=== PATIENT | female | born 1990 | race American Indian/Alaskan Native ===

== ENCOUNTER 2017-07-17 01:15 | Emergency (ER) | payer MEDICAID, OTHER ==
[2017-07-17] MEDS ORDERED: traMADol 50 MG Tab PO ONE (01:46)
--- NOTE | 2017-07-17 01:48 | EDM.PDOC ---
ED HPI GENERAL MEDICAL PROBLEM - General Chief Complaint: General Stated Complaint: TOOTH PAIN Time Seen by Provider: 07/17/17 01:16 Source of Information: Reports: Patient, Family History Limitations: Reports: No Limitations - History of Present Illness INITIAL COMMENTS - FREE TEXT/NARRATIVE: 26 y.o.NA came to the ed due to toothache. 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 pt denies any other acute medical issues. Onset: Today Onset Time: 00:00 Duration: Hour(s):, Constant Location: Reports: Head Quality: Reports: Ache, Burning Improves with: Reports: Rest Worsens with: Reports: Cold Therapy, Eating, Heat Therapy Associated Symptoms: Reports: No Other Symptoms Treatments DIRECTOR STATISTICAL PROGRAMMING: Reports: Acetaminophen R lower jaw Pain Score (Numeric/FACES): 9 - Related Data Allergies Allergy/AdvReac Type Severity Reaction Status Date / Time ibuprofen Allergy Abdominal Verified 03/11/16 15:45 Pain Home Meds: Home Meds Acetaminophen [Tylenol] 650 mg PO Q6H PRN 11/08/14 [History] Multivitamin [Multivitamins] 1 tab PO DAILY 10/07/16 [History] Melatonin 5 mg PO BEDTIME PRN 07/17/17 [History] Past Medical History - Past Health History Medical/Surgical History: Denies Medical/Surgical History Cardiovascular History: Reports: Hypertension Other Cardiovascular History: hx preeclampsia, Genitourinary History: Reports: None 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: , Other (See Below) Other OB/BYN History: Psychiatric History: Reports: ADHD Endocrine/Metabolic History: Reports: Obesity/BMI 30+ - Infectious Disease History Infectious Disease History: Reports: None - Past Surgical History HEENT Surgical History: Reports: Oral Surgery GI Surgical History: Reports: Appendectomy, Hernia Repair/Other Female Surgical History: Reports: Cystectomy, Salpingo-Oophorectomy Other Female Surgeries/Procedures: R ovary & fallopian tube removed Social & Family History - Family History Family Medical History: Noncontributory Oncologic: Reports: Breast Other Oncologic Family History: mother is a breast cancer survivor - Tobacco Use Smoking Status *Q: Current Some Day Smoker Years of Tobacco use: 2 Packs/Tins Daily: 0.1 Used Tobacco, but Quit: Yes Month Tobacco Last Used: September Second Hand Smoke Exposure: No - Caffeine Use Caffeine Use: Reports: Coffee - Alcohol Use Days Per Week of Alcohol Use: 0 Number of Drinks Per Day: 1 Total Drinks Per Week: 0 - Recreational Drug Use Recreational Drug Use: No Drug Use in Last 12 Months: No ED ROS GENERAL - Review of Systems Review Of Systems: See Below Constitutional: Reports: No Symptoms HEENT: Reports: Dental Pain Respiratory: Reports: No Symptoms Cardiovascular: Reports: No Symptoms Endocrine: Reports: No Symptoms GI/Abdominal: Reports: No Symptoms : Reports: No Symptoms Musculoskeletal: Reports: No Symptoms Skin: Reports: No Symptoms Neurological: Reports: No Symptoms Psychiatric: Reports: No Symptoms Hematologic/Lymphatic: Reports: No Symptoms Immunologic: Reports: No Symptoms ED EXAM, GENERAL - Physical Exam Exam: See Below Exam Limited By: No Limitations General Appearance: Alert, WD/WN, Mild Distress Eye Exam: Bilateral Eye: Normal Inspection Ears: Normal External Exam Ear Exam: Bilateral Ear: Auricle Normal Nose: Normal Inspection Throat/Mouth: Normal Inspection Head: Atraumatic Neck: Normal Inspection Respiratory/Chest: No Respiratory Distress Cardiovascular: Normal Peripheral Pulses Peripheral Pulses: 1+: Femoral (L), Femoral (R) GI/Abdominal: Normal Bowel Sounds (Female) Exam: Deferred Rectal (Female) Exam: Deferred Back Exam: Normal Inspection Extremities: Normal Inspection Neurological: Alert, Oriented, CN II-XII Intact Psychiatric: Normal Affect Skin Exam: Warm Lymphatic: No Adenopathy Course - Vital Signs Text/Narrative:: 26 y.o.NA came to the ed due to toothache. 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 pt denies any other acute medical issues PE: decayed tooth #30 Impression: Toothache Tx: Ultarm Plan: D/C with instructions Last Recorded V/S: Last Vital Signs Temp 36.7 C 07/17/17 01:16 Pulse 78 07/17/17 01:16 Resp 18 07/17/17 01:16 BP 131/76 07/17/17 01:16 Pulse Ox 99 07/17/17 01:16 Departure - Departure Time of Disposition: 01:46 Disposition: Home, Self-Care 01 Condition: Good Clinical Impression: Toothache - Discharge Information Instructions: Dental Caries, [id number] Referrals: Lopez Aguirre MD [Primary Care Provider] - Forms: ED Department Discharge Additional Instructions: Please take Tramadol for severe pain only, may continue to use Tylenol for moderate pain. Please follow up with your dentist, please come back if your symptoms get worse acutely.
[2017-07-17 02:00] VITALS: BP 139/73
== END 2017-07-17 01:52 | disposition home or self-care (01) ==
LOC: FB.ED 01:15
DX: K08.89 Other specified disorders of teeth and supporting structures (principal); I10 Essential (primary) hypertension; F17.210 Nicotine dependence, cigarettes, uncomplicated; F90.9 Attention-deficit hyperactivity disorder, unspecified type; E66.9 Obesity, unspecified; Z90.49 Acquired absence of other specified parts of digestive tract; Z88.8 Allergy status to other drugs, medicaments and biological substances
CPT/HCPCS: 99282; A9270; 99283

== ENCOUNTER 2017-07-19 10:32 | Emergency (ER) | payer MEDICAID ==
[2017-07-19] MEDS ORDERED: HYDROmorphone 2 MG/ML SDV IM ONE (10:55)
[2017-07-19] MEDS ORDERED: Ondansetron 8 MG Tab.DIS PO ONE (10:55)
--- NOTE | 2017-07-19 10:57 | EDM.PDOC ---
ED HPI GENERAL MEDICAL PROBLEM - General Stated Complaint: RT SIDE TOOTH PAIN Time Seen by Provider: 07/19/17 10:32 Source of Information: Reports: Patient, Family History Limitations: Reports: Other (nausea, vomiting) - History of Present Illness INITIAL COMMENTS - FREE TEXT/NARRATIVE: 26 NA came to the ed due to pain at her r lower jaw for 3 days, getting worse, with pain radiating to her right ear. Pt has severe N/V from pain as well, no trauma, no other acute medical issues. Onset: Unknown/Unsure Onset Date: 07/18/17 Onset Time: 09:00 Duration: Hour(s):, Intermittent Location: Reports: Face Quality: Reports: Dull, Pressure, Stabbing, Throbbing Severity: Severe Improves with: Reports: Cold Therapy, Medication Worsens with: Reports: Eating, Movement Context: Reports: Other (toothpain) Associated Symptoms: Reports: Nausea/Vomiting - Related Data Allergies Allergy/AdvReac Type Severity Reaction Status Date / Time ibuprofen Allergy Abdominal Verified 03/11/16 15:45 Pain Home Meds: Home Meds Acetaminophen [Tylenol] 650 mg PO Q6H PRN 11/08/14 [History] Multivitamin [Multivitamins] 1 tab PO DAILY 10/07/16 [History] Melatonin 5 mg PO BEDTIME PRN 07/17/17 [History] Acetaminophen/HYDROcodone [[place] 325-5 MG] 1 tab PO Q4H PRN #6 tab 07/19/17 [Rx] Ondansetron [Zofran ODT] 4 mg PO Q6H PRN #6 tab.dis 07/19/17 [Rx] Past Medical History - Past Health History Medical/Surgical History: Denies Medical/Surgical History Cardiovascular History: Reports: Hypertension Other Cardiovascular History: hx preeclampsia, Genitourinary History: Reports: None 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: , Other (See Below) Other OB/BYN History: Psychiatric History: Reports: ADHD Endocrine/Metabolic History: Reports: Obesity/BMI 30+ - Infectious Disease History Infectious Disease History: Reports: None - Past Surgical History HEENT Surgical History: Reports: Oral Surgery GI Surgical History: Reports: Appendectomy, Hernia Repair/Other Female Surgical History: Reports: Cystectomy, Salpingo-Oophorectomy Other Female Surgeries/Procedures: R ovary & fallopian tube removed Social & Family History - Family History Family Medical History: Noncontributory Oncologic: Reports: Breast Other Oncologic Family History: mother is a breast cancer survivor - Tobacco Use Smoking Status *Q: Former Smoker Years of Tobacco use: 7 Packs/Tins Daily: 0 Used Tobacco, but Quit: Yes Month Tobacco Last Used: September Second Hand Smoke Exposure: No - Caffeine Use Caffeine Use: Reports: Coffee - Alcohol Use Days Per Week of Alcohol Use: 0 Number of Drinks Per Day: 1 Total Drinks Per Week: 0 - Recreational Drug Use Recreational Drug Use: No Drug Use in Last 12 Months: No ED ROS ENT - Review of Systems Review Of Systems: See Below Constitutional: Reports: No Symptoms HEENT: Reports: Dental Pain Respiratory: Reports: No Symptoms Cardiovascular: Reports: No Symptoms Endocrine: Reports: No Symptoms GI/Abdominal: Reports: Nausea, Vomiting : Reports: No Symptoms Musculoskeletal: Reports: No Symptoms Skin: Reports: No Symptoms Neurological: Reports: No Symptoms Psychiatric: Reports: No Symptoms Hematologic/Lymphatic: Reports: No Symptoms Immunologic: Reports: No Symptoms ED EXAM, ENT - Physical Exam Exam: See Below Exam Limited By: No Limitations General Appearance: Alert, WD/WN, Mild Distress, Moderate Distress Eye Exam: Bilateral Eye: Normal Inspection Ears: Normal External Exam Nose: Normal Inspection Mouth/Throat: Dental Abcess (tooth#31), Dental Pain, Dental Tenderness Head: Atraumatic, Normocephalic Neck: Normal Inspection, Supple, Non-Tender, Full Range of Motion Respiratory/Chest: No Respiratory Distress, Lungs Clear, Normal Breath Sounds Cardiovascular: Normal Peripheral Pulses GI/Abdominal: Normal Bowel Sounds, Soft, Non-Tender (Female) Exam: Deferred Rectal (Female) Exam: Deferred Back: Normal Inspection, Full Range of Motion Extremities: Normal Inspection, Normal Range of Motion Neurological: Alert, Oriented, CN II-XII Intact, Normal Cognition, Normal Gait Psychiatric: Normal Affect, Normal Mood Skin: Warm, Dry, Intact Lymphatic: No Adenopathy Course - Vital Signs Text/Narrative:: 26 NA came to the ed due to pain at her r lower jaw for 3 days, getting worse, with pain radiating to her right ear. Pt has severe N/V from pain as well, no trauma, no other acute medical issues. PE: swelling of a right lower jaw, N/V Imaging: Abscessed tooth #31 Impressin: Abscessed tooth #31 Tx: Dilaudid, zofran Reexam: improved Plan: D/C with instruction - Orders/Labs/Meds Orders: Active Orders 24 hr Category Date Time Status Max Facial Sinus wo Cont [CT] Stat Exams 07/19/17 10:55 Taken Meds: Medications Discontinued Medications Generic Name Dose Route Start Last Admin Trade Name Freq PRN Reason Stop Dose Admin Hydromorphone HCl 1 mg 07/19/17 10:55 07/19/17 11:21 Dilaudid IM 07/19/17 10:56 1 mg ONETIME ONE Administration Ondansetron HCl 8 mg 07/19/17 10:55 07/19/17 11:16 Zofran Odt PO 07/19/17 10:56 8 mg ONETIME ONE Administration Departure - Departure Time of Disposition: 11:47 Disposition: Home, Self-Care 01 Condition: Good Clinical Impression: Abscessed tooth, Nausea - Discharge Information Prescriptions: Acetaminophen/HYDROcodone [[place] 325-5 MG] 1 tab PO Q4H PRN #6 tab PRN Reason: severe pain only Ondansetron [Zofran ODT] 4 mg PO Q6H PRN #6 tab.dis PRN Reason: Nausea Instructions: Dental Abscess Referrals: Lopez Aguirre MD [Primary Care Provider] - Forms: ED Department Discharge Additional Instructions: Please the dentist today as scheduled, please take the meds as recommended, please come back if your symptoms get worse acutely. - My Orders Last 24 Hours: My Active Orders 07/19/17 10:55 Max Facial Sinus wo Cont [CT] Stat - Assessment/Plan Last 24 Hours: My Active Orders 07/19/17 10:55 Max Facial Sinus wo Cont [CT] Stat
--- NOTE | 2017-07-19 12:18 | CT ---
INDICATION: Possible tooth abscess. Right side of face throbbing. No history of trauma. CT FACIAL BONES - PARANASAL SINUSES: Coronal 1.25-mm images through the paranasal sinuses were obtained 07/19/2017 and were compared with 03/02/2012. Total Exam DLP = 368.19 mGy-cm. The maxillary infundibula were patent. No thickening of linings, air-fluid levels, opacification, or bony erosion could be identified to suggest sinusitis. Dental work is present, which produces hard beam artifact limiting detail and making it fairly difficult to exclude a relatively mild inflammatory process. No large abscess could be identified, however. IMPRESSION: 1. Normal paranasal sinuses. 2. Limitation due to dental work is noted. There is, however, suspicion of a possible abscess of the first right mandibular molar. This should be correlated clinically. Report was called to Dr. Deras at 1145 hours, 07/19/2017. [facility]
[2017-07-19 13:17] VITALS: BP 136/76
== END 2017-07-19 11:59 | disposition home or self-care (01) ==
LOC: FB.ED 10:32
DX: K04.7 Periapical abscess without sinus (principal); E66.9 Obesity, unspecified; I10 Essential (primary) hypertension; Z88.6 Allergy status to analgesic agent; Z87.891 Personal history of nicotine dependence
CPT/HCPCS: 70486; 96372; 99283; A9270; J1170

== ENCOUNTER 2018-03-19 12:19 | Emergency (ER) | payer MEDICAID ==
[2018-03-19] MEDS ORDERED: Acetaminophen Soln 650 MG/20.3 ML UD Cup PO ONE (13:02)
[2018-03-19] MEDS ORDERED: Acetaminophen 325 MG Tab PO ONE (13:06)
--- NOTE | 2018-03-19 13:06 | EDM.PDOC ---
ED HPI GENERAL MEDICAL PROBLEM - General Stated Complaint: FEVERS, ACHING ALL OVER Time Seen by Provider: 03/19/18 12:19 Source of Information: Reports: Patient History Limitations: Reports: No Limitations - History of Present Illness INITIAL COMMENTS - FREE TEXT/NARRATIVE: 27 y.o.NA came to the ed because of hen bodyach with "needles sticking her" all over her body. Pt denied drug and ETOH use. Denied . No SOB, No C/P no N/V/D no F/C or any other acute medical issues. BP 151/111 Pulse 102 RR 18 Temp 37.1 Puls ox 100% on RA Onset Date: 03/19/18 Onset Time: 08:00 Duration: Hour(s): Location: Reports: Generalized Quality: Reports: Ache, Burning, Dull, Stabbing, Throbbing Severity: Moderate Improves with: Reports: Rest Worsens with: Reports: Movement Context: Reports: Other (amphetamin and marijuana use.) Associated Symptoms: Reports: No Other Symptoms - Related Data Allergies Allergy/AdvReac Type Severity Reaction Status Date / Time ibuprofen Allergy Abdominal Verified 03/19/18 13:48 Pain Home Meds: Home Meds Ciprofloxacin HCl [Cipro] 500 mg PO BID #20 tablet 03/19/18 [Rx] Past Medical History - Past Health History Medical/Surgical History: Denies Medical/Surgical History Cardiovascular History: Reports: Hypertension Other Cardiovascular History: hx preeclampsia, Genitourinary History: Reports: None 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: , Other (See Below) Other OB/BYN History: Psychiatric History: Reports: ADHD Endocrine/Metabolic History: Reports: Obesity/BMI 30+ - Infectious Disease History Infectious Disease History: Reports: None - Past Surgical History HEENT Surgical History: Reports: Oral Surgery GI Surgical History: Reports: Appendectomy, Hernia Repair/Other Female Surgical History: Reports: Cystectomy, Salpingo-Oophorectomy Other Female Surgeries/Procedures: R ovary & fallopian tube removed Social & Family History - Family History Family Medical History: Noncontributory Oncologic: Reports: Breast Other Oncologic Family History: mother is a breast cancer survivor - Caffeine Use Caffeine Use: Reports: Coffee ED ROS GENERAL - Review of Systems Review Of Systems: Unable To Obtain (anxiety, DOD) ED EXAM, GENERAL - Physical Exam Exam: See Below Exam Limited By: Intoxication (DOD) General Appearance: Alert, WD/WN, No Apparent Distress, Anxious Eye Exam: Bilateral Eye: Normal Inspection Ears: Normal External Exam, Normal Canal Ear Exam: Bilateral Ear: Auricle Normal Nose: Normal Inspection, Normal Mucosa, No Blood Throat/Mouth: Normal Lips, Normal Gums, Normal Oropharynx, Normal Voice, No Airway Compromise, Other (dry mucosal membranes) Head: Atraumatic, Normocephalic Neck: Normal Inspection, Supple, Non-Tender, Full Range of Motion Respiratory/Chest: No Respiratory Distress, Lungs Clear, Normal Breath Sounds, No Accessory Muscle Use, Chest Non-Tender Cardiovascular: Regular Rate, Rhythm, Tachycardia Peripheral Pulses: 1+: Brachial (R) GI/Abdominal: Normal Bowel Sounds, Soft, Non-Tender, No Organomegaly, No Distention, No Abnormal Bruit, No Mass, Pelvis Stable (Female) Exam: Deferred Rectal (Female) Exam: Deferred Back Exam: Normal Inspection, Full Range of Motion Extremities: Normal Inspection, Normal Range of Motion, Non-Tender, No Pedal Edema, Normal Capillary Refill Neurological: Alert, Oriented, CN II-XII Intact, Normal Cognition, Normal Gait, No Motor/Sensory Deficits Psychiatric: Anxious Skin Exam: Warm, Dry, Intact, Normal Color, No Rash Lymphatic: No Adenopathy Course - Vital Signs Text/Narrative:: 27 y.o.NA came to the ed because of hen bodyach with "needles sticking her" all over her body. Pt denied drug and ETOH use. Denied . No SOB, No C/P no N/V/D no F/C or any other acute medical issues. BP 151/111 Pulse 102 RR 18 Temp 37.1 Puls ox 100% on RA Labs: WBC 15,5 reminer nl, BMP nl UA pos for TCH and Amphetamines. UA pos for UTI Impression: UDS pos for marijuana and Amphetamines, UTI Tx: Tylenol, Cipro Reexam: Pt improved, was tking water well, ambulating well. Plan: D/C with instructions Last Recorded V/S: Last Vital Signs Temp 37.1 C 03/19/18 12:30 Pulse 109 H 03/19/18 14:40 Resp 18 03/19/18 14:40 BP 140/95 H 03/19/18 14:40 Pulse Ox 98 03/19/18 14:40 - Orders/Labs/Meds Orders: Active Orders 24 hr Category Date Time Status DRUG SCREEN, URINE ALERE [URCHEM] Stat Lab 03/19/18 12:50 Ordered UA W/MICROSCOPIC [URIN] Stat Lab 03/19/18 12:50 Ordered EKG 12 Lead [EK] Routine Ther 03/19/18 13:22 Ordered Labs: Laboratory Tests 03/19/18 03/19/18 03/19/18 Range/Units 12:50 12:50 12:50 WBC (4.5-12.0) X10-3/uL RBC (3.23-5.20) x10(6)uL Hgb (11.5-15.5) g/dL Hct (30.0-51.3) % MCV (80-96) fL MCH (27.7-33.6) pg MCHC (32.2-35.4) g/dL RDW (11.5-15.5) % Plt Count (125-369) X10(3)uL MPV (7.4-10.4) fL Add Manual Diff Neutrophils % (Manual) (46-82) % Lymphocytes % (Manual) (13-37) % Monocytes % (Manual) (4-12) % Sodium (135-145) mmol/L Potassium (3.5-5.3) mmol/L Chloride (100-110) mmol/L Carbon Dioxide (21-32) mmol/L BUN (7-18) mg/dL Creatinine (0.55-1.02) mg/dL Est Cr Clr Drug Dosing Estimated GFR (MDRD) (>60) BUN/Creatinine Ratio (9-20) Glucose (80-116) mg/dL Calcium (8.6-10.2) mg/dL Creatine Kinase (60-160) IU/L Troponin I (<0.017-0.056) ng/mL Urine Color [place] (YELLOW) Urine Appearance Clear (CLEAR) Urine pH 6.0 (5.0-6.5) Ur Specific [place] 1.015 (1.010-1.025) Urine Protein Trace (NEGATIVE) mg/dL Urine Glucose (UA) Normal (NEGATIVE) mg/dL Urine Ketones Negative (NEGATIVE) mg/dL Urine Occult Blood Negative (NEGATIVE) Urine Nitrite Negative (NEGATIVE) Urine Bilirubin Small H (NEGATIVE) Urine Urobilinogen >=12 H (NEGATIVE) mg/dL Ur Leukocyte Esterase Moderate H (NEGATIVE) Urine RBC 0-5 (0) Urine WBC 10-20 H (0) Ur Squamous Epith Cells Moderate H (NS,R,O) Urine Bacteria Few H (NS) Urine Mucus Many H (NS) Urine HCG, Qual Negative (NEGATIVE) Urine Opiates Screen Negative (NEGATIVE) Ur Oxycodone Screen Negative (NEGATIVE) Ur Propoxyphene Screen Negative (NEGATIVE) Ur Barbituates Screen Negative (NEGATIVE) Ur Tricyclics Screen Negative (NEGATIVE) Ur Phencyclidine Scrn Negative (NEGATIVE) Ur Amphetamine Screen Positive H (NEGATIVE) Urine MDMA Screen Negative (NEGATIVE) U Benzodiazepines Scrn Negative (NEGATIVE) U Cocaine Metab Screen Negative (NEGATIVE) U Marijuana (THC) Screen Positive H (NEGATIVE) 03/19/18 03/19/18 03/19/18 Range/Units 13:30 13:30 13:30 WBC 15.5 H (4.5-12.0) X10-3/uL RBC 4.17 (3.23-5.20) x10(6)uL Hgb 13.2 (11.5-15.5) g/dL Hct 37.8 (30.0-51.3) % MCV 90.7 (80-96) fL MCH 31.8 (27.7-33.6) pg MCHC 35.1 (32.2-35.4) g/dL RDW 12.2 (11.5-15.5) % Plt Count 214 (125-369) X10(3)uL MPV 8.2 (7.4-10.4) fL Add Manual Diff Yes Neutrophils % (Manual) 85 H (46-82) % Lymphocytes % (Manual) 13 (13-37) % Monocytes % (Manual) 2 L (4-12) % Sodium 136 (135-145) mmol/L Potassium 3.5 (3.5-5.3) mmol/L Chloride 100 (100-110) mmol/L Carbon Dioxide 27 (21-32) mmol/L BUN 9 (7-18) mg/dL Creatinine 0.6 (0.55-1.02) mg/dL Est Cr Clr Drug Dosing TNP Estimated GFR (MDRD) > 60 (>60) BUN/Creatinine Ratio 15.0 (9-20) Glucose 94 (80-116) mg/dL Calcium 9.0 (8.6-10.2) mg/dL Creatine Kinase 46 L (60-160) IU/L Troponin I < 0.017 L (<0.017-0.056) ng/mL Urine Color (YELLOW) Urine Appearance (CLEAR) Urine pH (5.0-6.5) Ur Specific [place] (1.010-1.025) Urine Protein (NEGATIVE) mg/dL Urine Glucose (UA) (NEGATIVE) mg/dL Urine Ketones (NEGATIVE) mg/dL Urine Occult Blood (NEGATIVE) Urine Nitrite (NEGATIVE) Urine Bilirubin (NEGATIVE) Urine Urobilinogen (NEGATIVE) mg/dL Ur Leukocyte Esterase (NEGATIVE) Urine RBC (0) Urine WBC (0) Ur Squamous Epith Cells (NS,R,O) Urine Bacteria (NS) Urine Mucus (NS) Urine HCG, Qual (NEGATIVE) Urine Opiates Screen (NEGATIVE) Ur Oxycodone Screen (NEGATIVE) Ur Propoxyphene Screen (NEGATIVE) Ur Barbituates Screen (NEGATIVE) Ur Tricyclics Screen (NEGATIVE) Ur Phencyclidine Scrn (NEGATIVE) Ur Amphetamine Screen (NEGATIVE) Urine MDMA Screen (NEGATIVE) U Benzodiazepines Scrn (NEGATIVE) U Cocaine Metab Screen (NEGATIVE) U Marijuana (THC) Screen (NEGATIVE) Meds: Medications Discontinued Medications Generic Name Dose Route Start Last Admin Trade Name Estefania PRN Reason Stop Dose Admin Acetaminophen 650 mg 03/19/18 13:06 03/19/18 13:08 Tylenol PO 03/19/18 13:07 650 mg ONETIME ONE Administration Ciprofloxacin 500 mg 03/19/18 14:26 03/19/18 14:38 Ciprofloxacin Hcl PO 03/19/18 14:27 500 mg ONETIME STA Administration Departure - Departure Time of Disposition: 14:27 Disposition: Home, Self-Care 01 Condition: Good Clinical Impression: Positive urine drug screen UTI (urinary tract infection) Qualifiers: Urinary tract infection type: acute cystitis Hematuria presence: without hematuria Qualified Code(s): N30.00 - Acute cystitis without hematuria - Discharge Information Prescriptions: Ciprofloxacin HCl [Cipro] 500 mg PO BID #20 tablet Instructions: Urinary Tract Infection, Adult, [id number], Ciprofloxacin tablets Referrals: Lopez Aguirre MD [Primary Care Provider] - Forms: ED Department Discharge Additional Instructions: Please do nottake any drugs, please increase water intake, please the cipro as recommended, please f/u, come back if your symptoms get worse acutely. - My Orders Last 24 Hours: My Active Orders 03/19/18 12:50 DRUG SCREEN, URINE ALERE [URCHEM] Stat UA W/MICROSCOPIC [URIN] Stat 03/19/18 13:22 EKG 12 Lead [EK] Routine - Assessment/Plan Last 24 Hours: My Active Orders 03/19/18 12:50 DRUG SCREEN, URINE ALERE [URCHEM] Stat UA W/MICROSCOPIC [URIN] Stat 03/19/18 13:22 EKG 12 Lead [EK] Routine
[2018-03-19] MEDS ORDERED: Ciprofloxacin 500 MG Tab PO STA (14:26)
[2018-03-19 14:53] VITALS: BP 140/95
== END 2018-03-19 14:47 | disposition home or self-care (01) ==
LOC: FB.ED 12:19
DX: N30.00 Acute cystitis without hematuria (principal); F12.129 Cannabis abuse with intoxication, unspecified; F15.129 Other stimulant abuse with intoxication, unspecified; I10 Essential (primary) hypertension; E66.9 Obesity, unspecified; Z90.49 Acquired absence of other specified parts of digestive tract; Z88.6 Allergy status to analgesic agent
CPT/HCPCS: 36415; 80048; 80305; 81001; 81025; 82550; 84484; 85025; 99283; A9270

== ENCOUNTER 2018-05-06 00:08 | Emergency (ER) | payer MEDICAID ==
[2018-05-06] MEDS ORDERED: Acetaminophen/oxyCODONE 325-5 MG Tab PO ONE (01:07)
[2018-05-06] MEDS ORDERED: Amoxicillin 500 MG Cap PO ONE ×2 (01:16→01:30)
[2018-05-06 02:01] VITALS: BP 161/98
--- NOTE | 2018-05-08 10:59 | ER ---
DATE SEEN: 05/06/2018 TIME SEEN: The patient was seen at 0035 hours. HISTORY OF PRESENT ILLNESS: Five hours ago onset of severe #21 tooth pain. The [place] to this [place] and she has marked pain. She is in tears. PHYSICAL EXAMINATION: VITAL SIGNS: Blood pressure 167/107, heart rate 86, respirations 20, and oxygen saturation 100%. GENERAL: The patient is in tears, lying on her side in a position because she has so much pain at tooth #21. At the buccal border, 70% of crown is absent and there is a brown abnormality of the pulp. No gingival erythema. The rest of teeth are in good hygiene and very well taken care of. The patient has no cervical adenopathy. Neck is supple with no pharyngeal erythema. A bupivacaine injection was placed 0.1% with epinephrine 1:200,000. The patient tolerated this well. She had immediate relief. She was grateful for the inferior alveolar nerve block. The patient sent home with prescription of 10 tablets of Percocet 5/325 and antibiotic. This should be enough until she can get to the dentist. She will be following up with the dentist on 05/08/2018. DIAGNOSIS: Periapical abscess with fractured crown, with 70% of the crown absent at the buccal border with old dental pulp abnormality. /[id number] VALERIE/SAE GARNETT
== END 2018-05-06 01:38 | disposition home or self-care (01) ==
LOC: FB.ED 00:08
DX: K04.7 Periapical abscess without sinus (principal)
CPT/HCPCS: 64400; 99282; A9270

== ENCOUNTER 2019-07-24 11:27 | Emergency (ER) | payer MEDICAID, OTHER ==
[2019-07-24 12:06] VITALS: PULSE 78
[2019-07-24] MEDS ORDERED: traMADol 50 MG Tab PO ONE (12:15)
--- NOTE | 2019-07-24 12:16 | EDM.PDOC ---
ED HPI GENERAL MEDICAL PROBLEM - General Chief Complaint: Lower Extremity Injury/Pain Stated Complaint: HIT LEFT LEG, BUMP,BRUISES Time Seen by Provider: 07/24/19 11:37 Source of Information: Reports: Patient History Limitations: Reports: No Limitations - History of Present Illness INITIAL COMMENTS - FREE TEXT/NARRATIVE: 28 y.o.w.f came to the ed 3 days after she twisted her left ankle. pt applied ice to the left ankle, she is still able 6to walk on her left leg with some discomfort, however. Pt isn not sex active, no other acute med issues. 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 - Related Data Allergies Allergy/AdvReac Type Severity Reaction Status Date / Time ibuprofen Allergy Abdominal Verified 05/06/18 00:30 Pain Home Meds: Home Meds Amoxicillin 875 mg PO BID #21 tab 05/06/18 [Rx] Hydrocodone/Acetaminophen [Hydrocodon-Acetaminophen 5-325] 1 each PO Q4HR PRN # 8 tablet 05/06/18 [Rx] oxyCODONE HCl/Acetaminophen [Percocet 5-325 mg Tablet] 1 each PO Q6HR #8 tablet 05/06/18 [Rx] traMADol [Ultram] 50 mg PO Q6H PRN #7 tab 07/24/19 [Rx] Past Medical History - Past Health History Medical/Surgical History: Denies Medical/Surgical History Cardiovascular History: Reports: Hypertension Other Cardiovascular History: hx preeclampsia, Genitourinary History: Reports: None 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: , Other (See Below) Other LATENT 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 EXAMINER History: Psychiatric History: Reports: ADHD Endocrine/Metabolic History: Reports: Obesity/BMI 30+ - Infectious Disease History Infectious Disease History: Reports: None - Past Surgical History HEENT Surgical History: Reports: Oral Surgery GI Surgical History: Reports: Appendectomy, Hernia Repair/Other Female Surgical History: Reports: Cystectomy, Salpingo-Oophorectomy Other Female Surgeries/Procedures: R ovary & fallopian tube removed Social & Family History - Family History Family Medical History: Noncontributory Oncologic: Reports: Breast Other Oncologic Family History: mother is a breast cancer survivor - Caffeine Use Caffeine Use: Reports: Coffee, Soda Review of Systems - Review of Systems Review Of Systems: See Below Constitutional: Reports: No Symptoms Eyes: Reports: No Symptoms Ears: Reports: No Symptoms Nose: Reports: No Symptoms Mouth/Throat: Reports: No Symptoms Respiratory: Reports: No Symptoms Cardiovascular: Reports: No Symptoms GI/Abdominal: Reports: No Symptoms Genitourinary: Reports: No Symptoms Musculoskeletal: Reports: Joint Pain (left ankle) Skin: Reports: No Symptoms Neurological: Reports: No Symptoms Psychiatric: Reports: No Symptoms ED EXAM, GENERAL - Physical Exam Exam: See Below Exam Limited By: No Limitations General Appearance: Alert, WD/WN, Mild Distress Eye Exam: Bilateral Eye: Normal Inspection Ears: Normal External Exam Ear Exam: Bilateral Ear: Auricle Normal Nose: Normal Inspection, Normal Mucosa, No Blood Throat/Mouth: Normal Lips, Normal Voice, No Airway Compromise Head: Atraumatic, Normocephalic Neck: Normal Inspection, Supple, Non-Tender Respiratory/Chest: No Respiratory Distress, Lungs Clear, Normal Breath Sounds, No Accessory Muscle Use, Chest Non-Tender Cardiovascular: Normal Peripheral Pulses, Regular Rate, Rhythm, No Edema, No Gallop, No Murmur GI/Abdominal: Normal Bowel Sounds, Soft, Non-Tender, No Mass, Pelvis Stable (Female) Exam: Deferred Rectal (Female) Exam: Deferred Back Exam: Normal Inspection Extremities: Normal Inspection Neurological: Alert, Oriented, CN II-XII Intact Psychiatric: Normal Affect, Normal Mood Skin Exam: Warm, Dry, Intact, Ecchymosis (left ancle) Lymphatic: No Adenopathy Course - Vital Signs Text/Narrative:: 28 y.o.w.f came to the ed 3 days after she twisted her left ankle. pt applied ice to the left ankle, she is still able 6to walk on her left leg with some discomfort, however. Pt isn not sex active, no other acute med issues. BP 180/ 111 RR 15 Pulse ox 100% on RA Tempo 36.8 Pulse 65 PE: WNWD W F with left ankle pain Imaging: Left ankle: NAD Impresion: Left ankle sprain Tx: Ice, Ultram Reexam: Improved Plan: D/C with instructions Last Recorded V/S: Last Vital Signs Temp 36.7 C 07/24/19 12:49 Pulse 78 07/24/19 12:49 Resp 17 07/24/19 12:49 BP 166/100 H 07/24/19 12:49 Pulse Ox 100 07/24/19 12:49 - Orders/Labs/Meds Orders: Active Orders 24 hr Category Date Time Status Ankle Min 3V Lt [CR] Stat Exams 07/24/19 12:15 Taken Meds: Medications Discontinued Medications Generic Name Dose Route Start Last Admin Trade Name Freq PRN Reason Stop Dose Admin Tramadol HCl 100 mg 07/24/19 12:15 07/24/19 12:26 Ultram PO 07/24/19 12:16 100 mg ONETIME ONE Administration Departure - Departure Time of Disposition: 13:07 Disposition: Home, Self-Care 01 Condition: Good Clinical Impression: Left ankle sprain Qualifiers: Encounter type: initial encounter Involved ligament of ankle: unspecified ligament Qualified Code(s): S93.402A - Sprain of unspecified ligament of left ankle, initial encounter - Discharge Information Prescriptions: traMADol [Ultram] 50 mg PO Q6H PRN #7 tab PRN Reason: for severe pain only Instructions: RICE Therapy for Routine Care of Injuries, [id number], Tramadol tablets, Hypertension, [id number] Referrals: Lopez Aguirre MD [Primary Care Provider] - Forms: ED Department Discharge, ED Return to Work/School Form Additional Instructions: Rest, ICE and elevation. Please take Ultram for severe pain, please f/u, come back if your symptoms get worse acutely - My Orders Last 24 Hours: My Active Orders 07/24/19 12:15 Ankle Min 3V Lt [CR] Stat - Assessment/Plan Last 24 Hours: My Active Orders 07/24/19 12:15 Ankle Min 3V Lt [CR] Stat
[2019-07-24 12:52] VITALS: BP 166/100
--- NOTE | 2019-07-25 10:49 | CR ---
INDICATION: Fell down stairs. LEFT ANKLE: Three views of the left ankle were obtained, 07/24/19 - no comparisons. The ankle mortise appears to be intact without evidence of a fracture, dislocation, or other significant bone or joint abnormality. [facility]
== END 2019-07-24 13:34 | disposition home or self-care (01) ==
LOC: FB.ED 11:27
DX: S93.402A Sprain of unspecified ligament of left ankle, initial encounter (principal); Z88.6 Allergy status to analgesic agent; I10 Essential (primary) hypertension; E66.9 Obesity, unspecified; X50.1XXA Overexertion from prolonged static or awkward postures, initial encounter
CPT/HCPCS: 73610-LT; 99283-25; A9270-GY

== ENCOUNTER 2020-08-28 14:43 | Emergency (ER) | payer OTHER ==
[2020-08-28] MEDS ORDERED: Ketorolac 60 MG/2 ML SDV IM ONE (15:25)
[2020-08-28] MEDS ORDERED: Acetaminophen/HYDROcodone 325-5 MG Tab PO ONE (15:25)
[2020-08-28] MEDS ORDERED: Ketorolac 30 MG/ML SDV IVPUSH ONE (15:33)
[2020-08-28] MEDS ORDERED: Iopamidol 755 Mg/ML 100 ML Bottle IV ONE (15:37)
--- NOTE | 2020-08-28 17:21 | CT ---
INDICATION: Painful mass left side of neck. Elevated white blood cell 13,000. COMPUTERIZED TOMOGRAPHY SOFT TISSUE OF THE NECK WITH CONTRAST: Spiral 2.5 mm axial sections were obtained through the neck with 75 mL Isovue-370 at 2 cc/second with sagittal and coronal reconstructions 08/28/20 - no comparison. Total exam DLP was 653.03 mGy-cm. There is a fat pill marking the area of tenderness in the left lower neck laterally. In that area, there is significant increase in subcutaneous fat density with fat stranding present and some thickening of the skin suggesting cellulitis in that area. No focal mass to strongly suggest an abscess was seen. However, there is cervical lymphadenopathy which is moderately extensive bilaterally with the largest node on the right measuring approximately 12 mm within this area of fat stranding approximately 13 mm deep to the skin. In addition to the fat stranding, which is fairly extensive in the area marked by a fat pill, the fat stranding extends contiguously from that area inferoposteriorly on the left, almost to the midline in the posterior neck area. No other significant masses could be identified. IMPRESSION: Findings are felt to be most compatible with cellulitis in the left lower neck with moderately extensive cervical lymphadenopathy, more prominent on the left than the right. Report was called to Dr. Yates at 1643 hours. [facility]
--- NOTE | 2020-08-28 17:30 | EDM.PDOC ---
ED HPI GENERAL MEDICAL PROBLEM - General Chief Complaint: Upper Extremity Injury/Pain Stated Complaint: NECK SWOLLEN Time Seen by Provider: 08/28/20 15:05 Source of Information: Reports: Patient History Limitations: Reports: No Limitations - History of Present Illness INITIAL COMMENTS - FREE TEXT/NARRATIVE: Patient presented to the ED because of left sided neck pain. There is a lump on her neck that is mobile and very tender. There is no associated fever,chills, drooling or any difficulty in swallowing. She was referred here from the clinic to be evaluated. left side of the neck Pain Score (Numeric/FACES): 4 - Related Data Allergies Allergy/AdvReac Type Severity Reaction Status Date / Time ibuprofen Allergy Abdominal Verified 05/06/18 00:30 Pain Home Meds: Home Meds Amoxicillin 875 mg PO BID #21 tab 05/06/18 [Rx] Hydrocodone/Acetaminophen [Hydrocodon-Acetaminophen 5-325] 1 each PO Q4HR PRN #8 tablet 05/06/18 [Rx] oxyCODONE HCl/Acetaminophen [Percocet 5-325 mg Tablet] 1 each PO Q6HR #8 tablet 05/06/18 [Rx] traMADol [Ultram] 50 mg PO Q6H PRN #7 tab 07/24/19 [Rx] Amoxicillin/Clavulanate K [Augmentin 875-125 MG] 1 tab PO BID #20 tablet 08/28/20 [Rx] Ketorolac [Toradol] 10 mg PO TID PRN #15 tab 08/28/20 [Rx] Past Medical History - Past Health History Medical/Surgical History: Denies Medical/Surgical History Cardiovascular History: Reports: Hypertension Other Cardiovascular History: hx preeclampsia, Genitourinary History: Reports: None 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: , Other (See Below) Other OFFICE EXECUTIVE History: Psychiatric History: Reports: ADHD Endocrine/Metabolic History: Reports: Obesity/BMI 30+ - Infectious Disease History Infectious Disease History: Reports: None - Past Surgical History HEENT Surgical History: Reports: Oral Surgery GI Surgical History: Reports: Appendectomy, Hernia Repair/Other Female Surgical History: Reports: Cystectomy, Salpingo-Oophorectomy Other Female Surgeries/Procedures: R ovary & fallopian tube removed Social & Family History - Family History Family Medical History: Noncontributory Oncologic: Reports: Breast Other Oncologic Family History: mother is a breast cancer survivor - Caffeine Use Caffeine Use: Reports: Coffee, Soda Review of Systems - Review of Systems Review Of Systems: See Below Constitutional: Reports: No Symptoms Eyes: Reports: No Symptoms Ears: Reports: No Symptoms Nose: Reports: No Symptoms Mouth/Throat: Reports: No Symptoms Respiratory: Reports: No Symptoms Cardiovascular: Reports: No Symptoms GI/Abdominal: Reports: No Symptoms Genitourinary: Reports: No Symptoms Musculoskeletal: Reports: No Symptoms Skin: Reports: No Symptoms Neurological: Reports: No Symptoms Psychiatric: Reports: No Symptoms ED EXAM, GENERAL - Physical Exam Exam: See Below Exam Limited By: No Limitations General Appearance: Alert, No Apparent Distress Eye Exam: Bilateral Eye: PERRL Ears: Normal External Exam, Normal Canal Nose: Normal Inspection, Normal Mucosa Throat/Mouth: Normal Inspection, Normal Lips Head: Atraumatic, Normocephalic Neck: Other (tender mass 2 x3 cm) Course - Vital Signs Text/Narrative:: Neck CT-see result Augmentin 875 mg PO x1 Toradol 30 mg IV x1 [place] 5/325, 2 po x1 Last Recorded V/S: Last Vital Signs Temp 36.2 C 08/28/20 15:00 Pulse 78 08/28/20 15:00 Resp 17 08/28/20 15:00 BP 143/90 H 08/28/20 15:00 Pulse Ox 99 08/28/20 15:00 - Orders/Labs/Meds Labs: Laboratory Tests 08/28/20 08/28/20 Range/Units 15:40 15:40 WBC 13.0 H (4.5-12.0) X10-3/uL RBC 4.35 (3.23-5.20) x10(6)uL Hgb 13.4 (11.5-15.5) g/dL Hct 38.5 (30.0-51.3) % MCV 88.6 (80-96) fL MCH 30.9 (27.7-33.6) pg MCHC 34.9 (32.2-35.4) g/dL RDW 12.0 (11.5-15.5) % Plt Count 292 (125-369) X10(3)uL MPV 7.4 (7.4-10.4) fL Neut % (Auto) 75.9 (46-82) % Lymph % (Auto) 16.3 (13-37) % Travis % (Auto) 5.6 (4-12) % Eos % (Auto) 1 (1.0-5.0) % Baso % (Auto) 1 (0-2) % Neut # (Auto) 9.9 H (1.6-8.3) # Lymph # (Auto) 2.1 (0.6-5.0) # Travis # (Auto) 0.7 (0.0-1.3) # Eos # (Auto) 0.2 (0.0-0.8) # Baso # (Auto) 0.1 (0.0-0.2) # Sodium 138 (135-145) mmol/L Potassium 3.9 (3.5-5.3) mmol/L Chloride 102 (100-110) mmol/L Carbon Dioxide 30 (21-32) mmol/L BUN 12 (7-18) mg/dL Creatinine 0.7 (0.55-1.02) mg/dL Est Cr Clr Drug Dosing TNP Estimated GFR (MDRD) > 60 (>60) BUN/Creatinine Ratio 17.1 (9-20) Glucose 87 (80-116) mg/dL Calcium 9.3 (8.6-10.2) mg/dL Meds: Medications Discontinued Medications Generic Name Dose Route Start Last Admin Trade Name Freq PRN Reason Stop Dose Admin Hydrocodone Bitart/Acetaminophen 2 tab 08/28/20 15:25 08/28/20 15:50 [place] 325-5 Mg PO 08/28/20 15:26 2 tab ONETIME ONE Administration Amoxicillin/Clavulanate Potassium 1 tab 08/28/20 17:38 08/28/20 17:42 Augmentin 875 Mg/125 Mg PO 08/28/20 17:39 1 tab ONETIME ONE Administration Iopamidol 100 ml 08/28/20 15:37 08/28/20 16:10 Isovue-370 (76%) IV 08/28/20 15:38 75 ml . DIRECTED ONE Administration Ketorolac Tromethamine 60 mg 08/28/20 15:25 08/28/20 20:04 Toradol IM 08/28/20 15:26 Not Given ONETIME ONE Ketorolac Tromethamine 30 mg 08/28/20 15:33 08/28/20 15:49 Toradol IVPUSH 08/28/20 15:34 30 mg ONETIME ONE Administration Departure - Departure Time of Disposition: 17:30 Disposition: Home, Self-Care 01 Condition: Good Clinical Impression: Reactive lymphadenopathy - Discharge Information Prescriptions: Amoxicillin/Clavulanate K [Augmentin 875-125 MG] 1 tab PO BID #20 tablet Ketorolac [Toradol] 10 mg PO TID PRN #15 tab PRN Reason: Pain Instructions: Lymphadenopathy Referrals: Lopez Aguirre MD [Primary Care Provider] - Forms: ED Department Discharge Additional Instructions: Please read discharge instructions on reactive lymphnodes Take augmentin 875 mg twice daily for 10 days toradol 10mg with tylenol 1000 mg every 8 hours as needed for pain Follow up with your doctor if symptoms persist
[2020-08-28] MEDS ORDERED: Amoxicillin/Clavulanate K 875-125 MG Tab PO ONE (17:38)
[2020-08-28 19:57] VITALS: BP 143/90; PULSE 78
== END 2020-08-28 18:55 | disposition home or self-care (01) ==
LOC: FB.ED 14:43
DX: R59.0 Localized enlarged lymph nodes (principal); I10 Essential (primary) hypertension; E66.9 Obesity, unspecified; Z88.6 Allergy status to analgesic agent; Z68.33 Body mass index [BMI] 33.0-33.9, adult
CPT/HCPCS: 36415; 70491; 80048; 85025; 96374; 99284; A9270; J1885; Q9967

== ENCOUNTER 2022-05-09 01:26 | Emergency (ER) | payer BC, OTHER ==
[2022-05-11 09:25] VITALS: BP 172/96; PULSE 71
== END 2022-05-09 02:35 | disposition home or self-care (01) ==
LOC: FB.ED 01:26
DX: N93.8 Other specified abnormal uterine and vaginal bleeding (principal); I10 Essential (primary) hypertension; E66.9 Obesity, unspecified; Z88.8 Allergy status to other drugs, medicaments and biological substances; Z68.30 Body mass index [BMI] 30.0-30.9, adult
CPT/HCPCS: 99283

== ENCOUNTER 2024-06-09 22:37 | Emergency (ER) | payer MEDICAID ==
[2024-06-09 22:50] VITALS: BP 144/86
[2024-06-10] MEDS: Acetaminophen 500 MG Tab PO ONE (00:13)
[2024-06-10] MEDS: Morphine 2 MG/ML SYRINGE IM ONE (00:35)
[2024-06-10 01:49] VITALS: PULSE 79
== END 2024-06-10 01:49 ==
LOC: FB.ED 22:37
DX: S00.83XA Contusion of other part of head, initial encounter (principal); S00.03XA Contusion of scalp, initial encounter; S60.212A Contusion of left wrist, initial encounter; S60.222A Contusion of left hand, initial encounter; S70.11XA Contusion of right thigh, initial encounter; I10 Essential (primary) hypertension; Z88.6 Allergy status to analgesic agent; Z79.899 Other long term (current) drug therapy; Y04.8XXA Assault by other bodily force, initial encounter; Y93.89 Activity, other specified
CPT/HCPCS: 70486; 73110; 73130; 96372; 99284; A9270; J2270

== ENCOUNTER 2024-07-05 13:50 | Emergency (ER) | payer MEDICAID ==
[2024-07-05] MEDS: LORazepam 2 MG/ML SDV IM ONE (14:19)
[2024-07-05 15:00] VITALS: PULSE 80
[2024-07-05] MEDS: Lisinopril 10 MG Tab PO ONE (15:10)
[2024-07-05 17:26] VITALS: BP 179/110
== END 2024-07-05 15:25 ==
LOC: FB.ED 13:50
DX: R07.89 Other chest pain (principal); F41.9 Anxiety disorder, unspecified; I10 Essential (primary) hypertension; E66.9 Obesity, unspecified; Z90.49 Acquired absence of other specified parts of digestive tract; Z88.6 Allergy status to analgesic agent; Z68.31 Body mass index [BMI] 31.0-31.9, adult
CPT/HCPCS: 96372; 99285; A9270; J2060